=== PATIENT | male | born 1950 | race Caucasian/White ===

== ENCOUNTER → 2020-11-04 13:08 | Outpatient (CLI) | payer MEDICARE, SELFPAY ==
--- NOTE | ~2020-11-04 | CT_ITS ---
EXAMINATION: CT abdomen pelvis w con DATE: 11/04/2020 13:48 INDICATION: Left lower quadrant abdominal pain. TECHNIQUE: Computed tomography (CT) of the abdomen and pelvis was performed with 100 mL Omnipaque 350 intravenous contrast. Automated exposure control and iterative reconstruction technique were employe d. The dose-length product was 974.93 mGy-cm. COMPARISON: None. FINDINGS: The visualized portions of the lung bases demonstrate mild atelectasis. Calcified right jimbo g nodules are consistent with old granulomatous disease. No pleural effusion. The heart size is wilbert l. No pericardial effusion. There is a small sliding hiatal hernia. Partially visualized is a 10.4 x 4.9 cm mass in the posterior mediastinum measuring soft tissue attenuation. There are cysts in the li samantha measuring up to 2.4 cm. The gallbladder is absent. Calcifications in the spleen are consistent wi th old granulomatous disease. The pancreas and left adrenal gland are normal. There is a 13 mm mass i n right adrenal gland measuring soft tissue attenuation. There is mild atrophy of right kidney. There are cysts in the kidneys measuring up to 3.5 cm on the right. There are changes of bilateral inguina l hernia repairs. There are no dilated loops of bowel. The appendix is not visualized. There are no p athologically enlarged lymph nodes. There is no free intraperitoneal fluid. The prostate is moderatel y enlarged. There is an old healed right rib fracture. There is severe osteoarthritis of the hips. Th ere is severe lower lumbar spondylosis. IMPRESSION: 1. Partially visualized and 10.4 x 4.9 cm mass in the posterior mediastinum suspicious for neoplasm o r bronchogenic cyst. Chest CT without contrast is recommended. I called this result to Ms. Putnam in the office of Dr. Aleman on 11/04/20 at 15:48. 2. Small sliding hiatal hernia. 3. 13 mm right adrenal mass, which may be an adenoma or less likely metastatic disease. Reviewed, dictated and finalized at location B. [employer] IMPRESSION: 1. Partially visualized and 10.4 x 4.9 cm mass in the posterior mediastinum damaso picious for neoplasm or bronchogenic cyst. Chest CT without contrast is recomme nded. I called this result to Ms. Putnam in the office of Dr. Aleman on at 15:48. 2. Small sliding hiatal hernia. 3. 13 mm right adrenal mass, which may be an adenoma or less likely metastatic disease.
[2020-11-04 13:36] LABS: Estimated Glomerular Filt Rate 60
== END ==
PROVIDERS: PCP Family Medicine; Visit Provider Surgery
DX: R10.32 Left lower quadrant pain (principal); R93.5 Abnormal findings on diagnostic imaging of other abdominal regions, including retroperitoneum; K44.9 Diaphragmatic hernia without obstruction or gangrene; E27.9 Disorder of adrenal gland, unspecified
CPT/HCPCS: 74177; Q9967

== ENCOUNTER 2020-11-10 10:42 | Outpatient (CLI) | payer MEDICARE, SELFPAY ==
--- NOTE | ~2020-11-10 | CT_ITS ---
EXAMINATION: CT chest wo con DATE: 11/10/2020 11:14 INDICATION: Mass seen in the posterior mediastinum on recent CT abdomen TECHNIQUE: Computed tomography (CT) of the chest was performed without intravenous contrast. The dose -length product was 366.18 mGy-cm. Automated exposure control and iterative reconstruction technique were employed. COMPARISON: CT abdomen dated 11/04/2020 FINDINGS: There is a mass in the posterior mediastinum measuring 9.2 cm transverse x4.2 cm AP times a pproximately 7.2 cm craniocaudal. This abuts the posterior margin of the heart in the esophagus. The mass measures approximately 28 Hounsfield units. There is a 13 mm right adrenal mass, most likely tyrone ign adenoma. There are low-density lesions throughout the liver, likely cysts. There are calcified gr anulomas in the spleen. No thoracic lymphadenopathy. Small hiatal hernia. No endobronchial lesions. N o focal airspace disease. No suspicious pulmonary nodules. There are multiple healed right rib fractu res. IMPRESSION: 1. Hypodense posterior mediastinal mass measuring 9.2 x 4.2 x 7.2 cm there are differential diagnosis includes bronchogenic or esophageal duplication cyst and less likely consideration including lymphom a, metastatic disease and neurogenic tumors. 2: 1.3 cm right adrenal mass, likely benign adenoma. Reviewed, dictated and finalized at location A. R ARTIST IMPRESSION: 1. Hypodense posterior mediastinal mass measuring 9.2 x 4.2 x 7.2 cm there are differential diagnosis includes bronchogenic or esophageal duplication cyst and less likely consideration including lymphoma, metastatic disease and neurogeni c tumors. 2: 1.3 cm right adrenal mass, likely benign adenoma.
== END 2020-11-10 10:43 | disposition home or self-care (01) ==
PROVIDERS: PCP Family Medicine; Visit Provider Surgery
DX: R93.89 Abnormal findings on diagnostic imaging of other specified body structures (principal); E27.9 Disorder of adrenal gland, unspecified
CPT/HCPCS: 71250

== ENCOUNTER 2022-11-13 14:43 | Emergency (ER) | payer MEDICARE, SELFPAY ==
[2022-11-13] VITALS (10 sets, daily range): BP systolic 163–192; BP diastolic 74–108; PULSE 63–82; RESP 16–18; TEMP 36.7; O2SAT 94–100
--- NOTE | ~2022-11-13 | XR_ITS ---
EXAMINATION: XR abdomen/kub 1V DATE: 11/13/2022 20:21 INDICATION: 3 mm distal right ureteral stone. TECHNIQUE: A supine view of the abdomen on 2 radiographs was obtained. COMPARISON: CT dated 11/13/2022 FINDINGS: The 3 mm distal right ureteral stone is visible in the right hemipelvis. There are also multiple larg er and more dense phleboliths bilaterally in the pelvis. Postoperative change of bilateral inguinal h ernia repairs. No dilated loops of bowel to suggest obstruction. Moderate osteoarthritis at the bilat eral hips. IMPRESSION: 1. 3 mm distal right ureteral stone. Reviewed, dictated and finalized at location A. [employer]PERATIONS
--- NOTE | ~2022-11-13 | CT_ITS ---
EXAMINATION: CT abdomen pelvis wo con DATE: 11/13/2022 17:12 INDICATION: Kidney stones presenting with right flank pain. TECHNIQUE: Computed tomography (CT) of the abdomen and pelvis was performed without intravenous contr ast. The dose-length product was 1027.90 mGy-cm. COMPARISON: 11/04/2020 FINDINGS: Old posterior right eighth rib fracture. Minimal atelectasis along the right hemidiaphragm. A few sma ll calcified right lower lobe nodules as well as a few scattered hepatic and splenic calcifications, all consistent with old granulomatous disease. Heart size is normal. No pericardial or pleural effusi on. Again seen is approximately 11.0 x 4.9 cm posterior mediastinal mass which abuts a small to moder ate-sized sliding-type hiatal hernia. This previously measured 10.1 x 4.9 cm corresponding dimensions . Again seen are several hepatic cysts the largest a left hepatic lobe measuring 3.2 cm. Gallbladder is not visualized and likely surgically absent. Pancreas and left adrenal gland are normal. No interval change in a 1.3 cm right adrenal nodule which given the interval stability is most consistent with a n adenoma. Again seen are bilateral renal cysts, the largest on the right measuring 3.0 cm. 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 Additional 1 mm stone in upper pole calyx of the right kidney. No left-sided urolithiasis or hydronephrosis. Bladder is normal. Prostatomegaly. No bowel obstruction. Diffuse fatty infiltration of the wall of the colon likely related to body habi tus. The appendix is not visualized. No pericecal inflammatory change to suggest acute appendicitis. Postoperative change of prior bilateral inguinal hernia repairs with unchanged fat-containing bilate ral inguinal hernias. No free intraperitoneal gas or fluid. No pathologically enlarged abdominal or p elvic lymphadenopathy. Mild to moderate lumbar spondylosis. IMPRESSION: 1. 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 2. 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 3. Small to moderate-sized sliding-type hiatal hernia. 4. Prostatomegaly. Reviewed, dictated and finalized at location A. CAL ACCOUNTANT IMPRESSION: 1. Obstructing 3 mm stone in the distalmost right ureter with mild right hydrou reteronephrosis with incidental duplicated proximal right ureteral collecting s ystem. 2. 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 3. Small to moderate-sized sliding-type hiatal hernia. 4. Prostatomegaly.
[2022-11-13 15:07] LABS: Basophils Absolute Auto 0.1 K/mm3 (0.0-0.1); Basophils Percent Auto 0.6 % (0.2-1.2); Eosinophils Absolute Auto 0.1 K/mm3 (0-0.3); Eosinophils Percent Auto 1.2 % (0-4.4); Hematocrit 44.3 % (42.0-52.0); Hemoglobin 14.8 g/dL (14.0-18.0); Immature Granulocyte Absolute 0.06 K/mm3 (0.00-0.031); Immature Granulocyte Percent A 0.6 % (0-0.5); Lymphocytes Absolute Auto 1.89 K/mm3 (0.9-3.2); Lymphocytes Percent Auto 18.6 % (18.3-44.2); Mean Corpuscular HGB Conc 33.4 g/dl (32-36); Mean Corpuscular Hemoglobin 31.1 pg (26-34); Mean Corpuscular Volume 93.1 fl (80-100); Mean Platelet Volume 9.4 fl (7.4-10.4); Monocytes Absolute Auto 0.8 K/mm3 (0.1-0.6); Monocytes Percent Auto 8.2 % (2.6-8.5); Neutrophils Absolute Auto 7.2 K/mm3 (1.3-6.7); Neutrophils Percent Auto 70.8 % (45.5-73.1); Platelet Count Result 215 k/mm3 (150-375); Red Blood Count 4.76 M/mm3 (4.6-6.20); Red Cell Distribution Width 13.4 % (11.5-14.5); White Blood Count 10.2 K/mm3 (4.5-10.0)
[2022-11-13 15:16] LABS: Alanine Aminotransferase 23 U/L (6-50); Albumin Level 4.3 g/dL (3.5-5.1); Alkaline Phosphatase 77 U/L (38-126); Anion Gap 6 mmol/L (8-16); Aspartate Amino Transferase 29 U/L (17-59); Bilirubin,Total 0.5 mg/dL (0.2-1.3); Blood Urea Nitrogen 18 mg/dL (9-20); Calcium 8.8 mg/dL (8.4-10.2); Carbon Dioxide 22 mmol/L (22-30); Chloride 105 mmol/L (98-107); Estimated CRCL calculation 47 ml/min; Estimated Glomerular Filt Rate 50; Glucose 104 mg/dL (65-110); Potassium 3.9 mmol/L (3.4-5.0); Sodium 133 mmol/L (137-145)
[2022-11-13 18:55] LABS: Add Urine Microscopic? YES; Appearance Urine Clear (Clear); Bilirubin Urine Negative (Negative); Blood Urine 2+ (Negative); Color Urine Light Yellow (Yellow); Glucose Urine UA Negative (Negative); Ketones Urine Negative (Negative); Leukocyte Esterase Ur Negative LEU/UL (Negative); Nitrate Urine Negative (Negative); Protein Urine Negative (Negative); Specific Grav Ur 1.025 (1.001-1.035); Urobilinogen Urine 0.2 mg/dL (<2.0)
[2022-11-13 19:02] LABS: Mucus Urine Rare /lpf; RBC Urine 21-50 /hpf (0-2); WBC Urine 0-3 /hpf
--- NOTE | 2022-11-13 19:45 | ED.GENADULT ---
HPI - General Adult General Chief complaint: Urogenital-Male Stated complaint: back pain Time Seen by Provider: 11/13/22 18:50 Source: patient Mode of arrival: ambulatory Limitations: no limitations History of Present Illness HPI narrative: Patient is a 72-year-old male who presents the ED with report of right flank and abdominal pain. Patient reports the pain began yesterday afternoon in his right flank region. Pain became severe overnight. He now reports pain is more in his right lateral and right lower abdomen. He took Aleve at 3 PM today with minimal relief. He has never had pain like this before. He does complain of urinary urgency, but denies dysuria, hematuria, fevers, nausea, vomiting, diarrhea, constipation. Related Data Home Medications Medication Instructions Recorded Confirmed naproxen sodium 220 mg capsule 220 mg PO Q8H 10/29/20 10/30/20 (Aleve) Allergies Allergy/AdvReac Type Severity Reaction Status Date / Time No Known Allergies Allergy Verified 11/13/22 14:57 Review of Systems Review of Systems: CONSTITUTIONAL: Denies fever, chills, or sweats. CARDIOVASCULAR: Denies chest pain. RESPIRATORY: Denies dyspnea. GASTROINTESTINAL: Reports R sided ABD pain. Denies constipation, nausea, vomiting, or diarrhea. GENITOURINARY: Reports urinary urgency. Denies dysuria or hematuria. MUSCULOSKELETAL: Reports R flank pain. All systems reviewed & are unremarkable except as noted in HPI and below PMFSH Past Medical History Medical History Enteric duplication cyst Surgical History Surgical History History of appendectomy History of bilateral inguinal hernia repair History of cholecystectomy Family History Family History Father , age 69 Cerebrovascular accident Multiple myeloma Mother Hypertension Social History Social History Smoking status: Never smoker Alcohol intake: current Alcohol use details: occasional Exam Narrative: GENERAL: Well appearing, well-nourished, non-toxic, in no acute distress. HEAD: Normocephalic, atraumatic. NECK: Supple. No adenopathy, no masses. RESPIRATORY: Airway patent, respirations nonlabored. Clear to auscultation bilaterally, no rales, rhonchi, wheezing. CARDIOVASCULAR: Regular rate and rhythm without murmurs, rubs, or gallops. Peripheral pulses 2+ and equal bilaterally. ABDOMINAL: Soft, minimal tenderness throughout right lower abdomen, nondistended, no hepatosplenomegaly. Normoactive BS. No significant CVA tenderness to percussion. MUSCULOSKELETAL: Moves all extremities. Strength/ROM intact without gross deformities. SKIN: Warm, dry, normal color. No rashes. NEURO: A&O X3. Speech clear. Cranial nerves II-XII grossly intact. Steady gait. No ataxic movements. PSYCHIATRIC: Appropriate mood and affect. Normal interaction. Course Vital Signs Vital signs: Vital Signs Temperature 98.1 F 11/13/22 14:58 Pulse Rate 76 11/13/22 14:58 Respiratory Rate 18 11/13/22 14:58 Blood Pressure 179/97 H 11/13/22 14:58 Pulse Oximetry 98 11/13/22 14:58 Oxygen Delivery Room Air 11/13/22 14:58 Temperature 98.1 F 11/13/22 14:58 Pulse Rate 63 11/13/22 21:02 Respiratory Rate 18 11/13/22 21:02 Blood Pressure 163/98 H 11/13/22 21:02 Pulse Oximetry 100 11/13/22 21:02 Oxygen Delivery Room Air 11/13/22 14:58 Medical Decision Making MDM Narrative Medical decision making narrative: Patient presented to ED with right flank and abdominal pain since last night. Vitals stable upon arrival. Exam fairly unremarkable. Minimal leukocytosis of 10.2. CMP fairly unremarkable. Creatinine maybe minimally decreased from baseline, 1.4 today. No recent records to compare to. UA with blood, no other signs
[2022-11-13] MEDS: SODIUM CHLORIDE 0.9% IV 1,000 ML 999 ML IV CONT (19:58)
[2022-11-13] MEDS: MORPHINE SULFATE (*CRX) 4 MG/ML INJ IV PUSH (19:59)
[2022-11-13] MEDS: KETOROLAC 30 MG/ML VIAL (*BKC) IV PUSH (19:59)
[2022-11-13] MEDS: ONDANSETRON INJ 4 MG/2 ML VIAL IV PUSH (20:00)
== END 2022-11-13 21:21 | disposition home or self-care (01) ==
PROVIDERS: Emergency Medicine; Emergency Provider Physician Assistant; PCP Family Medicine
DX: N20.1 Calculus of ureter (principal)
CPT/HCPCS: 36415; 74018; 74176; 80053; 81001; 85025; 87086; 96361; 96374; 96375; 99284; J1885; J2270; J2405; J7030